=== PATIENT | female | born 1995 | race Caucasian/White ===

== ENCOUNTER 2018-04-13 17:26 | Emergency (ER) | payer MEDICAID | END 2018-04-13 20:16 | disposition home or self-care (01) | LOC: FTE 17:26 | DX: O02.1 Missed abortion (principal) | CPT/HCPCS: 99282; Z7502 ==

== ENCOUNTER 2018-04-25 00:53 | Emergency (ER) | payer MEDICAID ==
[2018-04-25] MEDS: HYDROCODONE/APAP (5/325) TAB PO (03:19)
[2018-04-25 03:32] LABS: WHITE BLOOD COUNT 7.8 10^3/ul (4.8-10.8)
[2018-04-25 03:32] LABS: ADD MAN DIFF? NO; BASOPHILS % 0.3 % (0.0-2.0); EOSINOPHILS # 0.1 10^3/ul (0.0-0.5); EOSINOPHILS % 1.3 % (0.0-7.0); HEMATOCRIT 40.6 % (37.0-47.0); HEMOGLOBIN 13.1 g/dl (12.0-16.0); LYMPHOCYTES # 1.1 10^3/ul (0.8-2.9); LYMPHOCYTES % 13.7 % (15.0-51.0); MEAN CORPUSCULAR HEMOGLOBIN 27.5 pg (29.0-33.0); MEAN CORPUSCULAR HGB CONC 32.3 g/dl (32.0-37.0); MEAN CORPUSCULAR VOLUME 85.3 fl (82.0-101.0); MEAN PLATELET VOLUME 12.4 fl (7.4-10.4); MONOCYTE # 0.8 10^3/ul (0.3-0.9); MONOCYTES % 10.1 % (0.0-11.0); NEUTROPHIL # 5.8 10^3/ul (1.6-7.5); NEUTROPHILS % 74.2 % (39.0-77.0); PLATELET COUNT 170 10^3/UL (140-415); RED BLOOD COUNT 4.76 10^6/ul (4.20-5.40); RED CELL DISTRIBUTION WIDTH 12.6 % (11.5-14.5)
[2018-04-25 03:41] LABS: ADD UMIC YES; UR ASCORBIC ACID 40 mg/dL (NEGATIVE); UR BACTERIA FEW /HPF (NONE SEEN); UR BILIRUBIN (Dip) NEGATIVE (NEGATIVE); UR BLOOD (Dip) 3+ mg/dL (NEGATIVE); UR CLARITY CLOUDY (CLEAR); UR COLOR RED (YELLOW); UR GLUCOSE (Dip) NEGATIVE (NEGATIVE); UR KETONES (Dip) 1+ mg/dL (NEGATIVE); UR LEUKOCYTE ESTERASE (Dip) TRACE Leu/ul (NEGATIVE); UR NITRITE (Dip) NEGATIVE (NEGATIVE); UR RBC > 182 /HPF (0-5); UR SPECIFIC GRAVITY (Dip) 1.029 (1.003-1.030); UR TOTAL PROTEIN (Dip) 2+ mg/dl (NEGATIVE); UR UROBILINOGEN (Dip) NEGATIVE (NEGATIVE); UR WBC 8 /HPF (0-5)
[2018-04-25 03:55] LABS: ANION GAP 14 (5-13); BLOOD UREA NITROGEN 14 mg/dl (7-20); CALCIUM 9.7 mg/dl (8.4-10.2); CARBON DIOXIDE 27 mmol/L (21-31); CHLORIDE 102 mmol/L (97-110); CREATININE 0.76 mg/dl (0.44-1.00); Estimated GFR > 60 mL/min (>60); GLUCOSE 89 mg/dl (70-220); POTASSIUM 3.6 mmol/L (3.5-5.1); SODIUM 143 mmol/L (135-144)
[2018-04-25 04:25] LABS: INR 0.93; PROTIME 12.6 Sec (11.9-14.9)
== END 2018-04-25 05:03 | disposition home or self-care (01) ==
LOC: FTE 00:53
DX: R10.2 Pelvic and perineal pain (principal)
CPT/HCPCS: 36415; 76830; 76856; 80048; 81001; 84702; 85025; 85610; 85730; 86900; 86901; 99284-25